=== PATIENT | male | born 1990 | race Hispanic/Latino ===

== ENCOUNTER 2021-12-27 18:58 | Emergency (ER) | payer OTHER ==
[~2021-12-27] VITALS: Ht 175.3 cm; Wt 103.9 kg
[2021-12-27 20:25] LABS: BASOPHILS % (AUTO) 0.7 % (0.0-5.0); EOSINOPHILS % (AUTO) 2.4 % (0.0-8.0); HEMATOCRIT 46.2 % (42-54); LYMPHOCYTES % (AUTO) 29.3 % (21.0-51.0); MEAN CORPUSCULAR HEMOGLOBIN 29.3 pg (27.0-33.0); MEAN CORPUSCULAR HGB CONC 34.4 g/dL (32.0-36.0); MEAN CORPUSCULAR VOLUME 85.2 fL (79-99); MONOCYTES % (AUTO) 6.8 % (3.0-13.0); NEUTROPHILS % (AUTO) 60.6 % (40.0-77.0); PLATELET COUNT (AUTO) 195 K/uL (130-400); RED BLOOD CELL COUNT(AUTO) 5.42 MIL/uL (4.50-6.20); RED CELL DISTRIBUTION WIDTH 11.3 % (11.0-15.5); WHITE BLOOD COUNT (AUTO) 9.8 K/uL (4.8-10.8)
[2021-12-27 20:42] LABS: ALBUMIN 3.4 g/dL (3.5-5.0); BILIRUBIN,TOTAL 0.3 mg/dL (0.2-1.0); TOTAL PROTEIN, SERUM 7.4 g/dL (6.0-8.3)
[2021-12-27] MEDS ORDERED: INSULIN HUMULIN R 100 UNIT/ML 3ML IJ ONE (21:30)
[2021-12-27] MEDS ORDERED: 0.9%NACL 1000ML 1,000 ML IV ONE (21:30)
[2021-12-27] MEDS ORDERED: METF-444 PO (22:01)
[2021-12-27 22:03] VITALS: BP 127/70
[2021-12-28 12:53] LABS: HEPATITIS B CORE IGM ANTIBODY Non-Reactive (Negative); HEPATITIS B SURFACE ANTIGEN Non-Reactive (Negative); HEPATITIS C ANTIBODY Non-Reactive (NEGATIVE)
== END 2021-12-27 22:12 | disposition home or self-care (01) ==
LOC: EDH 18:58
DX: S69.92XA Unspecified injury of left wrist, hand and finger(s), initial encounter (principal); E11.9 Type 2 diabetes mellitus without complications; Z79.84 Long term (current) use of oral hypoglycemic drugs; W46.0XXA Contact with hypodermic needle, initial encounter; Y93.89 Activity, other specified; Y92.89 Other specified places as the place of occurrence of the external cause; Y99.0 Civilian activity done for income or pay
CPT/HCPCS: 36415; 80053; 85025; 86701; 86705; 86706; 87340; 87390; 87520; 99283; J1815; J7030